=== PATIENT | male | born 2000 | race Caucasian/White ===

== ENCOUNTER 2019-01-24 18:04 | Emergency (ER) | payer OTHER | END 2019-01-25 15:35 | disposition home or self-care (01) | LOC: ED 18:04 | DX: R45.1 Restlessness and agitation (principal); R45.851 Suicidal ideations | CPT/HCPCS: 80053; 80176; 81001; 84443; 85025; 96372; 99285-25; G0480; J1630; J2060 ==

== ENCOUNTER 2019-02-12 14:46 | Emergency (ER) | payer OTHER ==
[~2019-02-12] VITALS: Ht 167.6 cm; Wt 68.0 kg
--- OUTSIDE RECORDS SUMMARY | 2019-02-12 14:50 | XMS ---
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 Aakash has no Care Guidelines for this patient. Kaci VISIT COUNT (12 MO.) [address] [facility] [address] [place] TOTAL 3 NOTE: Visits indicate total known visits. ED/C VISIT TRACKING (12 MO.) 02/12/2019 14:47 [facility] [address] [place] [place] TYPE: Emergency COMPLAINT: - ANXIETY ATTACK 01/25/2019 18:03 [facility] [place] TYPE: Emergency COMPLAINT: - MEDICAL CLEARANCE DIAGNOSES: - Restlessness and agitation - Mental disorder, not otherwise specified 01/24/2019 18:05 [facility] [place] TYPE: Emergency COMPLAINT: - SUICIDAL IDEATION DIAGNOSES: - Suicidal ideations - Restlessness and agitation INPATIENT VISIT TRACKING (12 MO.) No inpatient visits to display in this time frame [email or web address]
[2019-02-12] MEDS ORDERED: LORAZEPAM2 MG PO ×2 (15:00)
[2019-02-12] MEDS ORDERED: TRAZODONE HCL50 MG PO (16:07)
[2019-02-12] MEDS ORDERED: HYDROXYZINE HCL25 MG PO (16:07)
[2019-02-12] MEDS ORDERED: ABILIFY10 MG PO (23:59)
[2019-02-13] MEDS ORDERED: LORAZEPAM1 MG PO
[2019-02-13] MEDS ORDERED: OLANZAPINE10 MG PO
[2019-02-13] MEDS ORDERED: HALOPERIDOL5 MG
[2019-02-13] MEDS ORDERED: ARIPIPRAZOLE LAUROXIL IM (00:01)
[2019-02-13] MEDS ORDERED: ARISTADA882 MG/3.2 IM (00:01)
== END 2019-02-12 16:19 | disposition home or self-care (01) ==
LOC: ED 14:46
DX: F41.9 Anxiety disorder, unspecified (principal); F31.9 Bipolar disorder, unspecified; Z79.899 Other long term (current) drug therapy
CPT/HCPCS: 99284

== ENCOUNTER 2019-02-12 21:14 | Emergency (ER) | payer OTHER ==
[~2019-02-12] VITALS: Ht 167.6 cm; Wt 68.0 kg
[~2019-02-12 21:14] MED LIST: HYDROXYZINE HCL25 MG PO; LORAZEPAM2 MG PO; TRAZODONE HCL50 MG PO
--- OUTSIDE RECORDS SUMMARY | 2019-02-12 21:16 | XMS ---
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 Aakash has no Care Guidelines for this patient. Kaci VISIT COUNT (12 MO.) [address] [facility] [address] [facility] [place] TOTAL 4 NOTE: Visits indicate total known visits. ED/C VISIT TRACKING (12 MO.) 02/12/2019 21:[address] [facility] [address] [place] [place] TYPE: Emergency COMPLAINT: - MEDICAL CLEARANCE 02/12/2019 14:47 [facility] [place] TYPE: Emergency COMPLAINT: - ANXIETY ATTACK 01/25/2019 18:03 [facility] [place] TYPE: Emergency COMPLAINT: - MEDICAL CLEARANCE DIAGNOSES: - Restlessness and agitation - Mental disorder, not otherwise specified 01/24/2019 18:05 [facility] [place] TYPE: Emergency COMPLAINT: - SUICIDAL IDEATION DIAGNOSES: - Suicidal ideations - Restlessness and agitation INPATIENT VISIT TRACKING (12 MO.) No inpatient visits to display in this time frame [id number]
[2019-02-12] MEDS ORDERED: ABILIFY10 MG PO (23:59)
[2019-02-13] MEDS ORDERED: LORAZEPAM1 MG PO
[2019-02-13] MEDS ORDERED: OLANZAPINE10 MG PO
[2019-02-13] MEDS ORDERED: HALOPERIDOL5 MG
[2019-02-13] MEDS ORDERED: ARISTADA882 MG/3.2 IM (00:01)
[2019-02-13] MEDS ORDERED: ARIPIPRAZOLE LAUROXIL IM (00:01)
== END 2019-02-13 00:56 | disposition home or self-care (01) ==
LOC: ED 21:14
DX: F31.9 Bipolar disorder, unspecified (principal); F17.200 Nicotine dependence, unspecified, uncomplicated; Z79.899 Other long term (current) drug therapy
CPT/HCPCS: 80053; 80176; 81001; 84443; 85025; 99285; G0480

== ENCOUNTER 2019-02-13 19:41 | Emergency (ER) | payer OTHER ==
[~2019-02-13] VITALS: Ht 167.6 cm; Wt 68.0 kg
[~2019-02-13 19:41] MED LIST changes: +ABILIFY10 MG PO; +ARIPIPRAZOLE LAUROXIL IM; +ARISTADA882 MG/3.2 IM; +HALOPERIDOL5 MG; +LORAZEPAM1 MG PO; +OLANZAPINE10 MG PO
--- OUTSIDE RECORDS SUMMARY | 2019-02-13 19:44 | XMS ---
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 Aakash has no Care Guidelines for this patient. Kaci VISIT COUNT (12 MO.) 5 [facility] [address] [place] TOTAL 5 NOTE: Visits indicate total known visits. ED/C VISIT TRACKING (12 MO.) 02/13/2019 19:41 [facility] [place] TYPE: Emergency COMPLAINT: - MEDICAL CLEARANCE 02/12/2019 21:14 [facility] [place] TYPE: Emergency COMPLAINT: - MEDICAL CLEARANCE 02/12/2019 14:47 [facility] [place] TYPE: Emergency COMPLAINT: - ANXIETY ATTACK 01/25/2019 18:03 [facility] [place] TYPE: Emergency COMPLAINT: - MEDICAL CLEARANCE DIAGNOSES: - Restlessness and agitation - Mental disorder, not otherwise specified 01/24/2019 18:05 [facility] [place] TYPE: Emergency COMPLAINT: - SUICIDAL IDEATION DIAGNOSES: - Suicidal ideations - Restlessness and agitation INPATIENT VISIT TRACKING (12 MO.) No inpatient visits to display in this time frame [email or web address]
== END 2019-02-14 01:08 | disposition home or self-care (01) ==
LOC: ED 19:41
DX: F31.9 Bipolar disorder, unspecified (principal); F17.200 Nicotine dependence, unspecified, uncomplicated; Z79.899 Other long term (current) drug therapy
CPT/HCPCS: 36415; 80053; 80176; 81001; 85025; 99284; G0480

== ENCOUNTER 2019-02-14 18:37 | Emergency (ER) | payer OTHER ==
[~2019-02-14] VITALS: Ht 167.6 cm; Wt 68.0 kg
--- OUTSIDE RECORDS SUMMARY | 2019-02-14 18:40 | XMS ---
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 - 2 Visits in 30 Days CARE PROVIDERS There are no care providers on record at this time. Aakash has no Care Guidelines for this patient. [facility] (12 MO.) [facility] NOTE: Visits indicate total known visits. ED/UCC VISIT TRACKING (12 MO.) 02/14/2019 18:37 [facility] [place] [place] TYPE: Emergency COMPLAINT: - UA NEEDED FOR [employer] 02/13/2019 19:41 [facility] [place] TYPE: Emergency COMPLAINT: - MEDICAL CLEARANCE 02/12/2019 21:14 [facility] [place] TYPE: Emergency COMPLAINT: - [...] visits to display in this time frame [id number]
== END 2019-02-14 20:25 | disposition home or self-care (01) ==
LOC: ED 18:37
DX: Z00.8 Encounter for other general examination (principal); F31.9 Bipolar disorder, unspecified; F29 Unspecified psychosis not due to a substance or known physiological condition; F17.200 Nicotine dependence, unspecified, uncomplicated; Z79.899 Other long term (current) drug therapy
CPT/HCPCS: 81001; 99284